=== PATIENT | female | born 1950 | race Caucasian/White ===

== ENCOUNTER 2016-05-26 06:58 | Day surgery (SDC) | payer OTHER ==
[~2016-05-26] VITALS: Ht 157.5 cm; Wt 72.2 kg
[2016-05-26 07:53] VITALS: Ht 157.5 cm; Wt 72.2 kg
[2016-05-26] MEDS ORDERED: HYDR12.58 PO (08:02)
[2016-05-26] MEDS ORDERED: SIMV40TA7 PO (08:02)
[2016-05-26] MEDS ORDERED: ASPI-535 PO (08:02)
[2016-05-26] MEDS ORDERED: AMLO5TAB4 PO (08:02)
[2016-05-26 08:30] VITALS: BP 125/74; PULSE 65; RESP 24
[2016-05-26 10:02] VITALS: BP 95/54; RESP 20
[2016-05-26] MEDS ORDERED: FENTAnyl 50 MCG/ML VIAL ONE (13:22)
[2016-05-26] MEDS ORDERED: MIDAZOLAM 1 MG/ML 2 ML INJ ONE ×2 (13:22)
--- NOTE | 2016-05-26 14:40 | GILP ---
DATE OF PROCEDURE: 05/26/2016 NAME OF PROCEDURES: Colonoscopy and biopsy. SURGEON: Sixto Swartz MD PREOPERATIVE DIAGNOSIS: Screening colonoscopy. POSTOPERATIVE DIAGNOSES: 1. Colonoscopy to ileocecal valve. 2. Extensive diverticulosis of the sigmoid colon. 3. Rectal polyp was removed using the biopsy forceps. 4. Internal hemorrhoids. INDICATION FOR THE PROCEDURE: Ms. Melanie Almanza is a 66-year-old female patient who was scheduled for screening colonoscopy. The procedure and possible complications were well explained to the patient, she understood and cons ented to the procedure. DESCRIPTION OF PROCEDURE: Under the influence of fentanyl and Versed, the colonoscope was carefully introduced in the rectum and it was advanced into the sigmoid colon. The patient was noted to have severe diverticulosis of the colon and because of the large diameter, the colonoscope could not be advanced further, so the scope was pulled out of the patient's colon. The upper endoscope was carefully introduced into the rectum and under direct vision, it was advance d all the way to the ileocecal valve. Because of the short length of the upper endoscope, the tip o f the cecum could not be reached. FINDINGS: Patient had a small rectal polyp and it was removed. She had internal hemorrhoids. She tolerated the procedure very well and there was no complication from the procedure. At the end of the procedure, she was awake with stable vital signs and she was discharged home to the care of h er family. IMPRESSION: Extensive diverticulosis of the sigmoid colon and the colonoscope could not be advanced further brennen use of the large diameter. So, the colonoscope was pulled out of the patient's colon and upper endos cope was carefully introduced into the rectum and under direct vision, it was advanced all the way t o the ileocecal valve. Because of the short length of the upper endoscope, the tip of the cecum could not be reached. The patient was noted to have a small rectal polyp and it was removed using the biopsy forceps. She had internal hemorrhoids. She tolerated the procedure very well and there was no complication from the procedure. At the end of the procedures, she was awake with stable vital signs and she was discharged home to the care of her family. IMPRESSION: Please see postoperative diagnosis. PLAN: High fiber diet. Dictated By: SIXTO BANKS/DARYN Conf#: [id number] DID#: [id number] CC: SIXTO SWARTZ MD;*[facility]*
== END 2016-05-26 12:27 | disposition home or self-care (01) ==
LOC: GIL 06:58
PROVIDERS: ATTEND Internal Medicine Gastroenterology
DX: Z12.11 Encounter for screening for malignant neoplasm of colon (principal); K62.1 Rectal polyp; I10 Essential (primary) hypertension
CPT/HCPCS: 45380; 88305; J2250; J3010; Z7610